=== PATIENT | male | born 1985 | race Two or more races ===

== ENCOUNTER 2016-09-28 17:53 | Emergency (ER) | payer SELFPAY ==
[~2016-09-28] VITALS: Ht 177.8 cm; Wt 97.5 kg
[2016-09-28 17:59] VITALS: BP 149/95
== END 2016-09-28 19:23 | disposition home or self-care (01) ==
LOC: ER 17:59
DX: H10.33 Unspecified acute conjunctivitis, bilateral (principal); J03.90 Acute tonsillitis, unspecified

== ENCOUNTER 2018-08-18 02:35 | Emergency (ER) | payer SELFPAY ==
[~2018-08-18] VITALS: Ht 177.8 cm; Wt 93.0 kg
[2018-08-18 06:36] VITALS: BP 154/86
[2018-08-18] MEDS ORDERED: TETANUS-DIPTH-ACEL PERTUSSIS 0.5ML SYRG IM ONE (06:45)
[2018-08-18] MEDS ORDERED: LIDOCAINE W/ EPINEPHRINE 2% INJ 20ML VIAL ONE (06:55)
[2018-08-18] MEDS ORDERED: BACITRACIN TOP OINT 1 UD PKG TOP ONE ×2 (07:20→07:30)
== END 2018-08-18 07:49 | disposition home or self-care (01) ==
LOC: ER 02:35
DX: S61.512A Laceration without foreign body of left wrist, initial encounter (principal); W26.0XXA Contact with knife, initial encounter; Y93.89 Activity, other specified; Y92.812 Truck as the place of occurrence of the external cause; Y99.8 Other external cause status
CPT/HCPCS: 12001; 90471; 90715

== ENCOUNTER 2018-09-03 10:46 | Emergency (ER) | payer SELFPAY ==
[~2018-09-03] VITALS: Ht 177.8 cm; Wt 90.7 kg
[2018-09-03 12:06] VITALS: BP 152/86
== END 2018-09-03 13:17 | disposition home or self-care (01) ==
LOC: ER 10:46
DX: S61.512D Laceration without foreign body of left wrist, subsequent encounter (principal); X58.XXXD Exposure to other specified factors, subsequent encounter